=== PATIENT | male | born 1935 | race Caucasian/White ===

== ENCOUNTER 2019-11-27 19:27 | Emergency (ER) | payer MEDICARE, OTHER ==
[~2019-11-27] VITALS: Ht 177.8 cm; Wt 68.0 kg
[~2019-11-27 19:27] MED LIST: ACTOS; AMARYL4 MG PO; ASPIRIN325 PO; ASPIRIN81 M2 PO; CENTRUM SILVER1 EAC2 PO; COZAAR 50 MG TA50 M2 PO; FISH OIL300 MG PO; HYTRIN; LIPITOR 20 MG T20 M1 PO; METFORMIN; METFORMIN HCL500 MG PO; NORCO 5-325 TA1 EACH PO; PROBIOTIC1 EAC1 PO; VITAMIN D3400 UNIT PO; VITAMINC500 PO; ZOCOR
[2019-11-27 19:46] LABS: URINE BILIRUBIN NEGATIVE (Negative); URINE BLOOD NEGATIVE (Negative); URINE CLARITY CLEAR; URINE COLOR STRAW; URINE GLUCOSE-RANDOM 3+ (Negative); URINE KETONES NEGATIVE (Negative); URINE LEUKOCYTES-REFLEX NEGATIVE (Negative); URINE NITRITE-REFLEX NEGATIVE (Negative); URINE PROTEIN NEGATIVE (Negative); URINE SPECIFIC GRAVITY <= 1.005 (1.005-1.030); URINE UROBILINOGEN 0.2 E.U./dl (0.2-1.0)
[2019-11-27 21:03] LABS: ABSOLUTE BASOPHILS 0.1 thou/uL (0.0-0.2); ABSOLUTE EOSINOPHILS 0.1 thou/uL (0.0-0.7); ABSOLUTE LYMPHOCYTES 1.3 thou/uL (0.8-5.3); ABSOLUTE MONOCYTES 0.4 thou/uL (0.0-1.2); BASOPHILS 1.3 %; EOSINOPHILS 2.9 %; HEMATOCRIT 32.8 % (42.0-52.0); HEMOGLOBIN 10.6 gm/dL (14.0-18.0); LYMPHOCYTES 26.5 %; MCH 26.4 pg (26.0-34.0); MCHC 32.4 g/dL (28.0-37.0); MCV 81.6 fL (80.0-100.0); MONOCYTES 7.7 %; MPV 9.1 fl. (7.2-11.1); NUCLEATED RBCS 0 /100WBC; PLATELET COUNT* 262 thou/uL (150-400); POLYS 61.6 %; RBC 4.03 mil/uL (4.50-6.00); RDW-CV 16.2 % (10.5-14.5); WBC 4.9 thou/uL (4.0-11.0)
[2019-11-27 21:11] LABS: PROTIME 10.3 Seconds (9.20-11.50)
[2019-11-27 21:16] LABS: CALCIUM 8.1 mg/dL (8.5-10.1); CREATININE 1.1 mg/dL (0.6-1.3); POTASSIUM 3.7 mmol/L (3.5-5.1)
[2019-11-27 21:27] LABS: ALBUMIN 2.9 g/dL (3.4-5.0); TOTAL BILIRUBIN 0.3 mg/dL (<0.1-1.0); TOTAL PROTEIN 5.7 g/dL (6.4-8.2)
[2019-11-27] MEDS ORDERED: GLUCOPHAGE500 MG PO (23:07)
[2019-11-27] MEDS ORDERED: GLIMEPIRIDE4 MG PO (23:07)
[2019-11-28] VITALS: BP 109/60
--- NOTE | 2019-11-28 10:31 | EKG ---
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: : 1935 Requested By: Eve Barnett Order Number: [id number] MD: Henrique Warren Measurements Intervals [place] Rate: 54 P: 99 MI: 214 QRS: 84 QRSD: 112 T: 52 QT: 431 QTc: 409 Interpretive Statements Sinus arrhythmia Borderline prolonged MI interval Borderline intraventricular conduction delay Borderline low voltage, extremity leads Compared to ECG 04/10/2016 01:26:09 no change Electronically Signed On 11-28-2019 10:30:20 MANAGER DOCUMENT by Henrique Warren [email or web address] <ELECTRONICALLY SIGNED> By: Henrique Warren MD, [facility] 11/28/19 1030 31 31 Henrique Warren MD, [facility] /EPI
== END 2019-11-28 00:03 | disposition home or self-care (01) ==
LOC: M.ERS 19:27
PROVIDERS: Emergency Medicine
DX: E11.65 Type 2 diabetes mellitus with hyperglycemia (principal); E78.00 Pure hypercholesterolemia, unspecified; Z88.2 Allergy status to sulfonamides

== ENCOUNTER 2020-10-02 23:26 | Inpatient (IN) | payer MEDICARE, OTHER ==
[~2020-10-02] VITALS: Ht 182.9 cm; Wt 68.0 kg
[~2020-10-02 23:26] MED LIST changes: +GLIMEPIRIDE4 MG PO; +GLUCOPHAGE500 MG PO
[2020-10-02 23:33] VITALS: BP 163/81
[2020-10-02 23:59] LABS: ABSOLUTE BASOPHILS 0.1 thou/uL (0.0-0.2); ABSOLUTE EOSINOPHILS 0.1 thou/uL (0.0-0.7); ABSOLUTE LYMPHOCYTES 0.9 thou/uL (0.8-5.3); ABSOLUTE MONOCYTES 0.4 thou/uL (0.0-1.2); ABSOLUTE NEUTROPHILS 6.4 thou/uL (1.6-8.1); BASOPHILS 0.9 %; EOSINOPHILS 0.7 %; HEMATOCRIT 37.3 % (42.0-52.0); HEMOGLOBIN 11.6 gm/dL (14.0-18.0); LYMPHOCYTES 11.6 %; MCH 26.5 pg (26.0-34.0); MCV 85.5 fL (80.0-100.0); MONOCYTES 5.1 %; MPV 9.1 fl. (7.2-11.1); NUCLEATED RBCS 0 /100WBC; PLATELET COUNT* 259 thou/uL (150-400); POLYS 81.7 %; RBC 4.37 mil/uL (4.50-6.00); RDW-CV 16.7 % (10.5-14.5); WBC 7.8 thou/uL (4.0-11.0)
[2020-10-03 00:15] LABS: BE -1.6 mmol/L (-2 to +3); PO2 119.1 mmHg (75.0-100.0); pH 7.362 (7.340-7.450)
[2020-10-03 00:17] LABS: PROTIME 10.9 Seconds (9.20-11.50)
[2020-10-03 00:32] LABS: CALCIUM 8.4 mg/dL (8.5-10.1); CREATININE 1.4 mg/dL (0.6-1.3)
[2020-10-03 00:40] LABS: ALBUMIN 3.2 g/dL (3.4-5.0); MAGNESIUM 1.6 mg/dL (1.8-2.4); TOTAL BILIRUBIN 0.4 mg/dL (<0.1-1.0); TOTAL PROTEIN 6.4 g/dL (6.4-8.2)
[2020-10-03 04:21] LABS: CALCIUM 8.7 mg/dL (8.5-10.1); MAGNESIUM 2.2 mg/dL (1.8-2.4); PHOSPHORUS* 3.2 mg/dL (2.5-4.9); POTASSIUM 3.3 mmol/L (3.5-5.1)
[2020-10-03 05:19] LABS: URINE BILIRUBIN NEGATIVE (Negative); URINE BLOOD 1+ (Negative); URINE CLARITY CLEAR; URINE COLOR YELLOW; URINE GLUCOSE-RANDOM 3+ (Negative); URINE KETONES NEGATIVE (Negative); URINE LEUKOCYTES-REFLEX NEGATIVE (Negative); URINE NITRITE-REFLEX NEGATIVE (Negative); URINE PROTEIN 2+ (Negative); URINE UROBILINOGEN 0.2 E.U./dl (0.2-1.0)
[2020-10-03 05:42] LABS: BACTERIA-REFLEX 1-9 Few /HPF (None Seen); CRYSTALS None Seen /LPF (None Seen); FINE GRANULAR CASTS 0-3 Few /LPF (None Seen); HYALINE CASTS 4-10 Moderate /LPF (None Seen); MUCUS 0-3 Light strn/LPF (None Seen); SQUAMOUS 0-3 Few /LPF (0-3); URINE RBC 0-2 Rare /HPF (0-2); URINE WBC-REFLEX 0-5 Rare /HPF (0-5)
[2020-10-03 07:10] VITALS: BP 109/55
--- NOTE | 2020-10-03 07:34 | NUR ---
INSULIN DRIP PAUSED AT THIS TIME DUE TO PATIENT'S BLOOD GLUCOSE OF 140. ER PHYSICIAN MADE AWARE.
[2020-10-03 08:57] LABS: CALCIUM 8.6 mg/dL (8.5-10.1); CREATININE 0.9 mg/dL (0.6-1.3); POTASSIUM 3.7 mmol/L (3.5-5.1)
[2020-10-03 09:00] LABS: PHOSPHORUS* 3.6 mg/dL (2.5-4.9)
--- NOTE | 2020-10-03 09:21 | NUR ---
PT IS MAKING CLAIMS THAT HE SHOULD HAVE APPROXIMATELY $16,000 IN HIS POSESSION AT THIS TIME. SECURITY IS BEING CALLED TO GO THROUGH PATIENT'S BELONGINGS WITH RN AT THIS TIME.
--- NOTE | 2020-10-03 09:41 | NUR ---
PT HAS BEEN FOUND TO HAVE APPROXIMATELY $6,000 IN HIS POSSESSION. SECURITY IS AT BEDSIDE AND FILLING OUT PERSONAL BELONGINGS SHEET.
[2020-10-03 10:10] VITALS: BP 140/67
[2020-10-03 10:16] VITALS: BP 134/66
--- NOTE | 2020-10-03 12:13 | EKG ---
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: [place] : 1935 Requested By: Eve Barnett Order Number: [id number] MD: Henrique Warren Measurements Intervals [place] Rate: 87 P: 83 HI: 201 QRS: 84 QRSD: 107 T: 40 QT: 380 QTc: 457 Interpretive Statements Sinus rhythm NIC, consider biatrial enlargement Borderline right axis deviation Compared to ECG 11/27/2019 19:32:18 Sinus arrhythmia no longer present Electronically Signed On 10-03-2020 12:13:13 ADMINISTRATIVE ASSISTANT FRONT DESK by Henrique Warren [email or web address] <ELECTRONICALLY SIGNED> By: Henrique Warren MD, [facility] 10/03/20 1213 2327 2327 Henrique Warren MD, [facility] /EPI
--- NOTE | 2020-10-03 18:36 | NUR ---
PATIENT ADMITTED TO RM 204 FROM ED AT APPROX 1000. A&O X2, FORGETFUL, PLEASANT AND CONFUSED. ADMISSION ASSESSMENT AND HISTORY COMPLETED. PATIENT MED SURG STATUS. ON 2L, SATS 100%, TITRATED TO RA. CT OF THE HEAD ORDERED DUE TO FALLS AND CONFUSION. RESULTS SHOW NO ACUTE CONCERNS ONLY AGE RELATED ATROPHY. MCCABE PATENT, UP WITH ASSSIT OF ONE. SUGARS ARE STABLE WITH SLIDING SCALE INSULIN AND ORAL COVERAGE. PATIENT WITH MULTIPLE WOUNDS AND PICTURES TAKEN, WOUND CONSULT ORDER OBTAINED AND INITIATED.
[2020-10-03 20:00] VITALS: BP 144/69
[2020-10-04] VITALS: BP 128/57
--- NOTE | 2020-10-04 04:11 | NUR ---
PT ALERT ORIENTED X 2. ON BED REST. OPEN BUTTOCK WOUNDS COVERED WITH MEPLEX. MCCABE WITH CLEAR YELLOW. ON RA. DENIES PAIN.
[2020-10-04 04:41] LABS: HEMATOCRIT 33.8 % (42.0-52.0); HEMOGLOBIN 11.1 gm/dL (14.0-18.0); MCHC 32.9 g/dL (28.0-37.0); MCV 82.3 fL (80.0-100.0); MPV 8.9 fl. (7.2-11.1); RBC 4.11 mil/uL (4.50-6.00); RDW-CV 16.5 % (10.5-14.5); WBC 8.9 thou/uL (4.0-11.0)
[2020-10-04 05:05] LABS: CALCIUM 8.8 mg/dL (8.5-10.1); CREATININE 0.8 mg/dL (0.6-1.3); MAGNESIUM 1.8 mg/dL (1.8-2.4); POTASSIUM 3.9 mmol/L (3.5-5.1)
[2020-10-04 08:10] VITALS: BP 130/67
--- NOTE | 2020-10-04 11:51 | NUR ---
CM ATTEMPTED TO SPEAK TO THE PT TO COMPLETE CM ASSESSEMENT. PT ALERT TO SELF AND UNABLE TO ANSWER ASSESSMENT QUESTIONS. CM ATTEMPTED TO CONTACT PT'S SPOUSE. NO ANSWER AND PT'S SPOUSE VOICEMAIL IS FULL. CM UNABLE TO LEAVE A VOICEMAIL. CM WILL F/U WITH PT'S SPOUSE AT ANOTHER TIME TO DISCUSS CM ASSESSMENT.
[2020-10-04 12:00] VITALS: BP 124/67
--- NOTE | 2020-10-04 17:49 | NUR ---
ASSUMED CARE OF PT AT 0730. PT [id number] AND CONFUSED AT TIMES. MED SURG STATUS. ON RA SAT UPPER 90'S. PT DENIES ANY PAIN OR SHORTNESS OF BREATH. PT UP TO RECLINER FOR MEALS-TOLERATED WELL. PT NEPHEW HERE THIS AFTERNOON AND STATED HE IS PT DPOA AND WILL BRING PAPERWORK UP OR FAX PAPERWORK. PT UP WITH 1 ASSIST, WEAKNESS NOTED AND UNSTEADY AT TIMES. MCCABE TO DEPENDENT DRAINAGE. PT WORKED WITH PT, OT AND ST TODAY-TOLERATED WELL. NO NEW RECOMMENDATIONS RECEIVED FROM SPEECH THERAPY. PT AMBULATED IN HALLWAY WITH PT WITH WALKER. PT UNSETADY AND WEAK AT TIMES. BLOOD SUGARS STABLE TODAY WITH SLIDING SCALE AND ORAL COVERAGE. REFER TO RESULTS. PT CURRENTLY RESTING IN BED WITH EYES CLOSED. AM ASSESSMENT CHARTED. MEDICATIONS PER NOV. PT REPOSITIONED EVERY 2 HOURS FOR COMFORT. HOURLY ROUNDING OBSERVED. BED IN LOW POSITION. BED/CHAIR ALARM IN PLACE. FALL PRECAUTIONS IN PLACE. CALL LIGHT WITHIN REACH. WILL CONTINUE PLAN OF CARE.
[2020-10-04 20:00] VITALS: BP 130/62
[2020-10-05] VITALS: BP 128/78
[2020-10-05 04:20] LABS: ABSOLUTE BASOPHILS 0.1 thou/uL (0.0-0.2); ABSOLUTE EOSINOPHILS 0.2 thou/uL (0.0-0.7); ABSOLUTE LYMPHOCYTES 1.2 thou/uL (0.8-5.3); ABSOLUTE MONOCYTES 0.4 thou/uL (0.0-1.2); ABSOLUTE NEUTROPHILS 6.6 thou/uL (1.6-8.1); BASOPHILS 0.6 %; EOSINOPHILS 2.6 %; HEMATOCRIT 35.2 % (42.0-52.0); HEMOGLOBIN 11.5 gm/dL (14.0-18.0); MCH 27.1 pg (26.0-34.0); MCHC 32.8 g/dL (28.0-37.0); MCV 82.7 fL (80.0-100.0); MPV 8.9 fl. (7.2-11.1); NUCLEATED RBCS 0 /100WBC; PLATELET COUNT* 269 thou/uL (150-400); POLYS 77.8 %; RBC 4.25 mil/uL (4.50-6.00); RDW-CV 16.6 % (10.5-14.5); WBC 8.5 thou/uL (4.0-11.0)
[2020-10-05 04:35] LABS: ALBUMIN 2.4 g/dL (3.4-5.0); ALKALINE PHOSPHATASE 94 U/L (46-116); ANION GAP 8 mmol/L (7-16); BUN 13 mg/dL (7-18); CALCIUM 8.1 mg/dL (8.5-10.1); CHLORIDE 104 mmol/L (98-107); CO2 28 mmol/L (21-32); CREATININE 0.8 mg/dL (0.6-1.3); GLUCOSE 237 mg/dL (70-99); PHOSPHORUS* 3.1 mg/dL (2.5-4.9); POTASSIUM 3.9 mmol/L (3.5-5.1); SGOT 11 U/L (15-37); SGPT 15 U/L (30-65); SODIUM 140 mmol/L (136-145); TOTAL BILIRUBIN 0.2 mg/dL (<0.1-1.0); TOTAL PROTEIN 5.3 g/dL (6.4-8.2)
[2020-10-05 08:00] VITALS: BP 143/81
[2020-10-05 12:00] VITALS: BP 149/79
[2020-10-05 16:00] VITALS: BP 155/85
[2020-10-05 20:00] VITALS: BP 162/88
[2020-10-06 01:33] VITALS: BP 149/87
[2020-10-06 04:58] VITALS: BP 139/77
[2020-10-06 08:00] VITALS: BP 150/87
--- NOTE | 2020-10-06 09:20 | NUR ---
WOUND NURSE: PATIENT SEEN TO ADDRESS THE FOLLOWING WOUNDS: SACRUM: PRESENTS WITH STAGE 3 PRESSURE INJURY CONTAINING FULL THICKNESS TISSUE LOSS MEASURING 1.0 X 1.5 X 0.2 CM. CONTAINS RED AND YELLOW NONGRANULATING TISSUE IN THE WOUND BED. MINIMAL SEROUSANGUINOUS DRAINAGE. THERE IS PERIWOUND REDNESS AND COUPLE SMALL AREAS OF EXCORIATION. CLEANSED WITH WOUND CLEANSER AND GAUZE. APPLIED SKIN PREP TO PERIWOUND INTACT TISSUE. APPLIED AQUACEL AG TO OPEN AREAS. COVERED WITH EXUDERM UNDER TRANSPARENT DRESSING. PLAN TO CHANGE DRESSING 2X/WEEK AND PRN. LEFT HAND CONTAINED A SCAB WHEN LIFTED OFF REVEALED INTACT SKIN. THERE IS INTACT SKIN ON A SCAR ON THE LEFT DORSAL FOOT. THERE IS A RUPTURED PUSTULE IN THE ANTERIOR LOWER EXTREMITY WHICH MEASURED 0.4 X 0.3 X 0.1 CM. TIS CONTAINED SCANT PINK PURULENT DRAINAGE AND RED AND YELLOW NONGRANULATING TISSUE IN THE WOUND BED. THERE IS MINIMAL PERIWOUND REDNESS AND NO INDURATION. CLEANSED WITH WOUND CLEANSER AND GAUZE. APPLIED SKIN PREP TO PERIWOUND. APPLIED AQUACEL AG UNDER BORDERED FOAM DRESSING TO AFFECTED AREA. PATIENT IS ABLE TO REPOSITION SELF, BUT MAY REQUIRE REMINDERS TO DO SO. ALSO EXPLAINED IMPORTANCE OF FREQUENT REPOSITIONING OFF SACRUM AND HE STATED HE UNDERSTOOD. PATIENT IS IN CONTACT ISOLATION. PATIENT HAS MACULAR RED RASH IN PERINEAL AREA. CURRENTLY MOISTURE BARRIER IS BEING USED, HOWEVER, PLAN TO DISCUSS WITH POSSIBLE USE OF NYSTATIN POWDER INSTEAD.
--- NOTE | 2020-10-06 11:47 | NUR ---
Pt is A&O. Resides at home with his . Pt uses a cane or walker for mobility. No hx of HH or SNF. ARU consult placed, Pt states that he would prefer to return home since his is home alone. Therapies to see. Await ARU decision. Plan home with HH vs ARU. Per , anticipate dc tomorrow.
[2020-10-06 16:31] VITALS: BP 129/72
--- NOTE | 2020-10-06 18:45 | NUR ---
RECEIVED REPORT. ASSUMED CARE OF PT AROUND 0730. AM ASSESSMENT AND VITALS COMPLETED CHARTED. MEDS PER EMAR. APPETITE FAIR. PT ABLE TO WORK WITH THERAPIES THIS SHIFT. MCCABE IN PLACE TO DD. WOUND CARE COMPLETED BY WOUND RN. PLAN IS FOR PT TO DC TO REHAB POTENTIALLY TOMORROW. PT CURRENTLY RESTING IN BED. CALL LIGHT IS WITHIN REACH. FALL PRECAUTIONS IN PLACE. HOURLY ROUNDING PERFORMED.
[2020-10-06 21:15] VITALS: BP 134/70
[2020-10-07] VITALS (7 sets, daily range): BP systolic 134–148; BP diastolic 70–86
--- NOTE | 2020-10-07 04:23 | NUR ---
PATIENT ARRIVED TO UNIT IN TRANSFER BY BED FROM ROOM 204 AT 2115 IN STABLE CONDITION. REPORT WAS RECEIVED PRIOR TO TRANSFER FROM 2W JENNIFER DESOUZA. PATIENT ORIENTED TO ROOM AND ROUTINES. SHIFT ASSESSMENT COMPLETED. SEE PCI. VITAL SIGNS STABLE. NOTED MCCABE CATHETER PRESENT AND BRIEF ON WITH URINE IN BRIEF. IT APPEARS TUBING KINKED AND MAY HAVE BEEN LEAKING AROUND TUBING. PAER-CARE PROVIDED. YEASTY TYPE RASH PRESENT OF GROIN AND INNER THIGHS ESPECIALLY LEFT SIDE. DRESSINGS TO SACRUM AND LLE PRESENT, DRY AND INTACT. VITAL SIGNS STABLE. FALL PRECAUTIONS IN PLACE. CLARIFIED ORAL ANTIBIOTIC ORDER IN THE NIGHT R/T SULFA ALLERGY. CONTINUE TO MONITOR.
[2020-10-07] MEDS ORDERED: GLUCOPHAGE850 MG PO (08:38)
[2020-10-07] MEDS ORDERED: MINOCYCLINE HC100 M2 PO (08:38)
--- NOTE | 2020-10-07 15:00 | NUR ---
PT.TO DISCHARGE HOME TODAY WITH HOME HEALTH. TOO HIGH LEVEL FOR ARU. PT.HAPPY HE GOT TO GO HOME. HE SAID 'I HAVEN'T SEEN MY IN 3 WEEKS'. PT.AGREEABLE TO USING [facility] FOR HOME HEALTH. HE SAID HE THOUGHT HE HAD THEM BEFORE. HE SAID HIS NEPHEW COULD PICK HIM UP. HE COULD NOT REMEMBER THE NAME OF HIS NEPHEW. NEPHEW LISTED KESHA Mccormick IN CHART WITH PHONE NUMBER. HE SAID YES THATS HIM. CALLED KESHA. HE SAID HE WAS WORKING BUT HE WOULD ARRANGE FOR ONE OF PTS NIECES TO PICK HIM UP. HE DID NOT KNOW WHAT TIME IT WOULD BE. FAXED [facility] HH ORDERS AND MEDS,ALONG WITH H&P. ZEINA CALLED BACK ASKING FOR PTS PCP NAME. PT COULD NOT REMEMBER. NIECE HERE AND SAID IT WAS CECILLE RM-Jenniffer AT [facility]-[phone]. WILL CALL RONY WITH NAME.
--- NOTE | 2020-10-07 17:40 | NUR ---
FAMILY AND PATIENT VERBALIZED UNDERSTANDING OF DISCHARGE INSRUCTIONS. PATIENT VOIDED WITHOUT DIFFICULTY. IV D/C WITHOUT DIFFICULTY. DRESSINGS DRY AND INTACT AT DISCHARGE. PATIENT REFUSED PICTURES TO BE TAKEN. LEFT VIA W/C WITH FAMILY AND STAFF.
== END 2020-10-07 17:45 | disposition home health service (06) | DRG 602 ==
LOC: M.ERS 23:26 → M.TBA-ER 10-03 02:18 → M.2W 10-03 11:52 → M.3W 10-06 21:15
PROVIDERS: Emergency Medicine; Internal Medicine; ADMIT Internal Medicine; ATTEND Internal Medicine
DX: L03.317 Cellulitis of buttock (principal); E11.00 Type 2 diabetes mellitus with hyperosmolarity without nonketotic hyperglycemic-hyperosmolar coma (NKHHC); G92 Toxic encephalopathy; N17.0 Acute kidney failure with tubular necrosis; E44.1 Mild protein-calorie malnutrition; E11.65 Type 2 diabetes mellitus with hyperglycemia; E78.00 Pure hypercholesterolemia, unspecified; I10 Essential (primary) hypertension; E86.9 Volume depletion, unspecified; L89.309 Pressure ulcer of unspecified buttock, unspecified stage; Z20.828 Contact with and (suspected) exposure to other viral communicable diseases; F03.90 Unspecified dementia, unspecified severity, without behavioral disturbance, psychotic disturbance, mood disturbance, and anxiety; E78.5 Hyperlipidemia, unspecified; Z68.20 Body mass index [BMI] 20.0-20.9, adult; Z79.84 Long term (current) use of oral hypoglycemic drugs; Z79.899 Other long term (current) drug therapy; Z88.2 Allergy status to sulfonamides

== ENCOUNTER → 2020-10-22 | Outpatient (CLI) | payer MEDICARE, OTHER ==
[~2020-10-22] MED LIST changes: +GLUCOPHAGE850 MG PO; +MINOCYCLINE HC100 M2 PO; +SIMVASTATIN80 MG PO
== END ==
LOC: M.WC 08:19
PROVIDERS: ATTEND Surgery
DX: E11.622 Type 2 diabetes mellitus with other skin ulcer (principal); L89.322 Pressure ulcer of left buttock, stage 2; L89.312 Pressure ulcer of right buttock, stage 2; L98.412 Non-pressure chronic ulcer of buttock with fat layer exposed; I87.312 Chronic venous hypertension (idiopathic) with ulcer of left lower extremity; L97.822 Non-pressure chronic ulcer of other part of left lower leg with fat layer exposed; F03.90 Unspecified dementia, unspecified severity, without behavioral disturbance, psychotic disturbance, mood disturbance, and anxiety; Z79.84 Long term (current) use of oral hypoglycemic drugs

== ENCOUNTER 2020-10-23 22:52 | Inpatient (IN) | payer MEDICARE, OTHER ==
[~2020-10-23] VITALS: Ht 177.8 cm; Wt 70.8 kg
[~2020-10-23 22:52] MED LIST changes: -SIMVASTATIN80 MG PO
[2020-10-23 22:55] VITALS: BP 146/71
[2020-10-23 23:11] LABS: BE -2.1 mmol/L (-2 to +3); PCO2 VENOUS 48.1 mmHg (41.0-51.0); PO2 VENOUS 37.2 mmHg (35.0-45.0)
[2020-10-23 23:15] LABS: ABSOLUTE EOSINOPHILS 0.1 thou/uL (0.0-0.7); ABSOLUTE LYMPHOCYTES 1.1 thou/uL (0.8-5.3); ABSOLUTE MONOCYTES 0.4 thou/uL (0.0-1.2); ABSOLUTE NEUTROPHILS 5.9 thou/uL (1.6-8.1); BASOPHILS 0.5 %; EOSINOPHILS 1.6 %; HEMATOCRIT 36.8 % (42.0-52.0); HEMOGLOBIN 11.7 gm/dL (14.0-18.0); LYMPHOCYTES 15.1 %; MCH 27.4 pg (26.0-34.0); MCHC 31.8 g/dL (28.0-37.0); MCV 86.3 fL (80.0-100.0); NUCLEATED RBCS 0 /100WBC; PLATELET COUNT* 313 thou/uL (150-400); POLYS 77.8 %; RBC 4.27 mil/uL (4.50-6.00); RDW-CV 16.5 % (10.5-14.5); WBC 7.6 thou/uL (4.0-11.0)
[2020-10-23] MEDS ORDERED: SIMVASTATIN80 MG PO (23:22)
[2020-10-23 23:27] LABS: ANION GAP 7 mmol/L (7-16); BUN 12 mg/dL (7-18); CALCIUM 8.8 mg/dL (8.5-10.1); CHLORIDE 94 mmol/L (98-107); CO2 29 mmol/L (21-32); CREATININE 1.4 mg/dL (0.6-1.3); POTASSIUM 3.9 mmol/L (3.5-5.1); SODIUM 130 mmol/L (136-145)
[2020-10-23 23:28] LABS: GLUCOSE 715 mg/dL (70-99)
[2020-10-23 23:35] LABS: ALKALINE PHOSPHATASE 203 U/L (46-116); DIRECT BILIRUBIN 0.1 mg/dL (<0.1-0.3); LIPASE 280 U/L (73-393); MAGNESIUM 1.7 mg/dL (1.8-2.4); NT-PRO BRAIN NAT PEPTIDE 266 pg/mL (<300); PHOSPHORUS* 3.7 mg/dL (2.5-4.9); SGOT 13 U/L (15-37); SGPT 16 U/L (30-65); TOTAL BILIRUBIN 0.5 mg/dL (<0.1-1.0); TOTAL PROTEIN 6.3 g/dL (6.4-8.2)
[2020-10-24] VITALS (7 sets, daily range): BP systolic 91–134; BP diastolic 49–73
[2020-10-24 00:32] LABS: URINE BILIRUBIN NEGATIVE (Negative); URINE BLOOD 2+ (Negative); URINE COLOR STRAW; URINE GLUCOSE-RANDOM 3+ (Negative); URINE KETONES NEGATIVE (Negative); URINE LEUKOCYTES 1+ (Negative); URINE NITRITE NEGATIVE (Negative); URINE PROTEIN 2+ (Negative); URINE SPECIFIC GRAVITY 1.015 (1.005-1.030); URINE UROBILINOGEN 0.2 E.U./dl (0.2-1.0)
[2020-10-24 00:33] LABS: BACTERIA >30 Many /HPF (None Seen); CASTS None Seen /LPF (None Seen); CRYSTALS None Seen /LPF (None Seen); MUCUS 4-6 Moderate strn/LPF (None Seen); SQUAMOUS 0-3 Few /LPF (0-3); URINE CLARITY SL HAZY; URINE WBC >25 Many /HPF (0-5); WBC CLUMPS Moderate (None Seen)
[2020-10-24 11:21] LABS: ALBUMIN 2.5 g/dL (3.4-5.0); CALCIUM 8.2 mg/dL (8.5-10.1); CREATININE 0.9 mg/dL (0.6-1.3); POTASSIUM 3.4 mmol/L (3.5-5.1); TOTAL BILIRUBIN 0.3 mg/dL (<0.1-1.0); TOTAL PROTEIN 5.3 g/dL (6.4-8.2)
--- NOTE | 2020-10-24 12:01 | 2DMMODE ---
[place] [address] 2 D/M-MODE ECHOCARDIOGRAM Name: ETIENNE GAN JR Room: [place] [address] ADM IN [facility]#: [id number] Admission: 10/23/20 Attend Phys: Kathrine Manley MD Discharge: Date of : 37 Date of Service: 10/24/20 1200 Report #: [id number] THIS REPORT FOR: cc: CECILLE KOENIG NP, KATHERINE J. NP Holkins, John M. MD [facility] ~ APPROVED REPORT Study performed: 10/24/2020 09:55:43 EXAM: Comprehensive 2D, Doppler, and color-flow Echocardiogram Patient Location: In-Patient Room #: er Status: routine BSA: 1.88 HR: 78 bpm BP: 103/48 mmHg Rhythm: NSR Other Information Study Quality: Good Indications CVA/TIA Echo Enhancing Agent Indication: Rule out Shunt Agent(s) / Amount(s) Used: Agitated Saline 10 cc 2D Dimensions IVSd: 10.01 (7-11mm) LVOT Diam: 19.95 (18-24mm) LVDd: 46.42 mm PWd: 10.01 (7-11mm) Ascending Ao: 30.90 (22-36mm) LVDs: 25.89 (25-40mm) Aortic Root: 33.90 mm Volumes Left Atrial Volume (Systole) LA ESV Index: 23.80 mL/m2 Aortic Valve AoV Peak Jim.: 1.16 m/s AO Peak Gr.: 5.39 mmHg LVOT Max P.41 mmHg AO Mean Gr.: 2.43 mmHg LVOT Mean P.43 [place] [address] 2 D/M-MODE ECHOCARDIOGRAM Name: ETIENNE GAN JR Room: [address] IN [facility]#: [id number] Admission: 10/23/20 Attend Phys: Kathrine Manley MD Discharge: Date of : 37 Date of Service: 10/24/20 1200 Report #: [id number] LVOT Max V: 0.92 m/s AO V2 VTI: 19.43 cm LVOT Mean V: 0.53 m/s RODDY (VTI): 2.80 cm2 LVOT V1 VTI: 17.43 cm Mitral Valve E/A Ratio: 0.92 MV Decel. Time: 290.07 ms MV E Max Jim.: 0.55 m/s MV PHT: 84.12 ms MVA (PHT): 2.62 cm2 TDI E/Lateral E': 5.00 E/Medial E': 5.00 Medial E' Jim.: 0.11 m/s Lateral E' Jim.: 0.11 m/s Pulmonary Valve PV Peak Jim.: 0.80 m/s PV Peak Gr.: 2.55 mmHg Tricuspid Valve RAP Estimate: 5.00 mmHg TR Peak Gr.: 52.43 mmHg RVSP: 57.00 mmHg PA Pressure: 57.00 mmHg Left Ventricle The left ventricle is normal size. There is normal LV segmental wall motion. There is normal left ventricular wall thickness. Left ventricular systolic function is normal. The left ventricular ejection fraction is within the normal range. LVEF is 60%. This study is not technically sufficient to allow evaluation of the LV diastolic function. Right Ventricle Right ventricle is moderately dilated. The right ventricular systolic function is normal. Atria The left atrium size is normal. Injection of bubbles documented no interatrial shunt. Right atrium is moderately dilated. Aortic Valve Mild aortic valve sclerosis. Trace aortic regurgitation. There is no aortic valvular stenosis. Mitral Valve There is mitral annular calcification. There [place] [address] 2 D/M-MODE ECHOCARDIOGRAM Name: ETIENNE GAN JR Room: [address] IN [facility]#: [id number] Admission: 10/23/20 Attend Phys: Kathrine Manley MD Discharge: Date of : 37 Date of Service: 10/24/20 1200 Report #: [id number] regurgitation noted. No evidence of mitral valve stenosis. Tricuspid Valve The tricuspid valve is normal in structure. Mild tricuspid regurgitation. Moderate pulmonary hypertension. Pulmonic Valve The pulmonary valve is normal in structure. There is no pulmonic valvular regurgitation. Great Vessels The aortic root is normal in size. IVC is normal in size and collapses >50% with inspiration. Pericardium There is no pericardial effusion. <Conclusion> The left ventricle is normal size. There is normal left ventricular wall thickness. Left ventricular systolic function is normal. The left ventricular ejection fraction is within the normal range. LVEF is 60%. Right ventricle is moderately dilated. The right ventricular systolic function is normal. The left atrium size is normal. Right atrium is moderately dilated. Mild aortic valve sclerosis. Trace aortic regurgitation. There is no aortic valvular stenosis. There is mitral annular calcification. There is no mitral valve regurgitation noted. The tricuspid valve is normal in structure. Mild tricuspid regurgitation. Moderate pulmonary hypertension. IVC is normal in size and collapses >50% with inspiration. There is no pericardial effusion. There is normal LV segmental wall motion. Injection of bubbles documented no interatrial shunt. <ELECTRONICALLY SIGNED> By: Bebeto Joe MD, FACC 10/24/20 1200 1200 99 Bebeto Joe MD, FACC /INF
--- NOTE | 2020-10-24 13:00 | EKG ---
[place] [address] ELECTROCARDIOGRAM REPORT Name: ETIENNE GAN JR Room: [place] [address] ADM IN .R.#: [id number] Admission: 10/23/20 Attend Phys: Kathrine Manley MD Discharge: Date of : 37 Date of Service: 10/23/202 Report #: [id number] THIS REPORT FOR: //name// [facility] ED Test Date: 2020-10-23 Test Time: 23:02:49 Pat Name: ETIENNE GAN Department: Room: [facility] Gender: M Greenhouse Assistant: : 1935 Requested By: Tom Whaley Order Number: [id number] MD: Bebeto Joe Measurements Intervals [place] Rate: 63 P: 87 [place]: 195 QRS: 91 QRSD: 110 T: 65 QT: 430 QTc: 441 Interpretive Statements Sinus rhythm Multiform ventricular premature complexes Right axis deviation Consider left ventricular hypertrophy Compared to ECG 10/02/2020 23:27:21 Ventricular premature complex(es) now present Electronically Signed On 10-24-2020 13:00:43 DRY TALC RACKER by Bebeto Joe [email or web address] <ELECTRONICALLY SIGNED> By: Bebeto Joe MD, FACC 10/24/201299 01 01 Bebeto Joe MD, FAC /EPI
[2020-10-25 02:08] LABS: GLYCOHEMOGLOBIN (HGB A1C) 15.3 % (4.8-5.6)
[2020-10-25 04:02] VITALS: BP 90/51
[2020-10-25 04:32] LABS: ABSOLUTE BASOPHILS 0.1 thou/uL (0.0-0.2); ABSOLUTE EOSINOPHILS 0.2 thou/uL (0.0-0.7); ABSOLUTE LYMPHOCYTES 1.7 thou/uL (0.8-5.3); ABSOLUTE MONOCYTES 0.6 thou/uL (0.0-1.2); EOSINOPHILS 1.4 %; HEMATOCRIT 37.8 % (42.0-52.0); HEMOGLOBIN 11.9 gm/dL (14.0-18.0); LYMPHOCYTES 12.4 %; MCH 26.5 pg (26.0-34.0); MCHC 31.6 g/dL (28.0-37.0); MCV 83.9 fL (80.0-100.0); MONOCYTES 4.6 %; MPV 9.1 fl. (7.2-11.1); NUCLEATED RBCS 0 /100WBC; PLATELET COUNT* 332 thou/uL (150-400); POLYS 80.6 %; RBC 4.51 mil/uL (4.50-6.00); RDW-CV 16.3 % (10.5-14.5); WBC 13.7 thou/uL (4.0-11.0)
[2020-10-25 05:10] LABS: CREATININE 0.9 mg/dL (0.6-1.3); POTASSIUM 3.6 mmol/L (3.5-5.1)
[2020-10-25 05:24] LABS: CHOLESTEROL 155 mg/dL (<200); HDL CHOLESTEROL 50 mg/dL (>40); LDL CHOLESTEROL 90 mg/dL (<100); TC:HDL 3.1 Ratio (Not establshd); TRIGLYCERIDE 75 mg/dL (<150); VLDL 15 mg/dL (<40)
[2020-10-25 05:33] LABS: SERUM ASSESSMENT Clear
[2020-10-25 08:00] VITALS: BP 157/70
[2020-10-25 11:30] VITALS: BP 142/72
[2020-10-25 16:00] VITALS: BP 134/67
[2020-10-25 20:00] VITALS: BP 145/77
[2020-10-26 01:06] VITALS: BP 131/72
[2020-10-26 03:52] LABS: ABSOLUTE BASOPHILS 0.1 thou/uL (0.0-0.2); ABSOLUTE EOSINOPHILS 0.3 thou/uL (0.0-0.7); ABSOLUTE LYMPHOCYTES 1.1 thou/uL (0.8-5.3); ABSOLUTE MONOCYTES 0.5 thou/uL (0.0-1.2); ABSOLUTE NEUTROPHILS 6.1 thou/uL (1.6-8.1); BASOPHILS 1.3 %; EOSINOPHILS 3.5 %; HEMATOCRIT 36.7 % (42.0-52.0); HEMOGLOBIN 11.8 gm/dL (14.0-18.0); MCH 26.8 pg (26.0-34.0); MCHC 32.2 g/dL (28.0-37.0); MCV 83.1 fL (80.0-100.0); MPV 8.8 fl. (7.2-11.1); NUCLEATED RBCS 0 /100WBC; PLATELET COUNT* 273 thou/uL (150-400); POLYS 75.2 %; RBC 4.42 mil/uL (4.50-6.00); RDW-CV 16.3 % (10.5-14.5); WBC 8.2 thou/uL (4.0-11.0)
[2020-10-26 03:56] LABS: CALCIUM 8.1 mg/dL (8.5-10.1); CREATININE 0.9 mg/dL (0.6-1.3); POTASSIUM 3.7 mmol/L (3.5-5.1)
[2020-10-26 04:32] VITALS: BP 142/79
[2020-10-26 08:00] VITALS: BP 133/75
[2020-10-26 13:04] VITALS: BP 146/87
[2020-10-26 16:30] VITALS: BP 157/86
[2020-10-26 20:00] VITALS: BP 139/80
[2020-10-27] VITALS: BP 136/81
[2020-10-27 04:00] VITALS: BP 135/75
[2020-10-27 08:00] VITALS: BP 144/81
[2020-10-27] MEDS ORDERED: GLUCOTROL5 MG PO (09:37)
[2020-10-27] MEDS ORDERED: GLUCOPHAGE500 MG PO (09:37)
[2020-10-27 12:00] VITALS: BP 143/75
== END 2020-10-27 16:20 | DRG 637 ==
LOC: M.ERS 22:52 → M.TBA-ER 23:59 → M.2W 10-24 17:15
PROVIDERS: Emergency Medicine; Internal Medicine; ADMIT Family Medicine; ATTEND Family Medicine
DX: E11.00 Type 2 diabetes mellitus with hyperosmolarity without nonketotic hyperglycemic-hyperosmolar coma (NKHHC) (principal); G93.41 Metabolic encephalopathy; N17.9 Acute kidney failure, unspecified; E87.1 Hypo-osmolality and hyponatremia; N39.0 Urinary tract infection, site not specified; Z20.822 Contact with and (suspected) exposure to COVID-19; E78.00 Pure hypercholesterolemia, unspecified; E86.0 Dehydration; F03.90 Unspecified dementia, unspecified severity, without behavioral disturbance, psychotic disturbance, mood disturbance, and anxiety; Z88.2 Allergy status to sulfonamides; Z79.899 Other long term (current) drug therapy

== ENCOUNTER → 2020-11-05 | Outpatient (CLI) | payer MEDICARE, OTHER ==
[~2020-11-05] MED LIST changes: +GLUCOTROL5 MG PO; +SIMVASTATIN80 MG PO
== END ==
LOC: M.WC 10:30
PROVIDERS: ATTEND Surgery
DX: E11.622 Type 2 diabetes mellitus with other skin ulcer (principal); I87.312 Chronic venous hypertension (idiopathic) with ulcer of left lower extremity; L97.822 Non-pressure chronic ulcer of other part of left lower leg with fat layer exposed; L89.322 Pressure ulcer of left buttock, stage 2; L89.312 Pressure ulcer of right buttock, stage 2; L98.412 Non-pressure chronic ulcer of buttock with fat layer exposed; R60.9 Edema, unspecified; F03.90 Unspecified dementia, unspecified severity, without behavioral disturbance, psychotic disturbance, mood disturbance, and anxiety; Z79.84 Long term (current) use of oral hypoglycemic drugs

== ENCOUNTER 2020-12-22 21:15 | Inpatient (IN) | payer MEDICARE, OTHER ==
[~2020-12-22] VITALS: Ht 172.7 cm; Wt 73.9 kg
[2020-12-22 21:18] VITALS: BP 141/79
[2020-12-22] MEDS ORDERED: HUMALOG100 UNIT/1 SUBQ (21:24)
[2020-12-22] MEDS ORDERED: LANTUS SUBQ (21:24)
[2020-12-22] MEDS ORDERED: ALPRAZOLAM 0.0.25 M1 PO (21:25)
[2020-12-22 22:02] LABS: URINE BILIRUBIN NEGATIVE (Negative); URINE BLOOD 1+ (Negative); URINE CLARITY CLEAR; URINE COLOR YELLOW; URINE GLUCOSE-RANDOM 3+ (Negative); URINE KETONES NEGATIVE (Negative); URINE LEUKOCYTES-REFLEX NEGATIVE (Negative); URINE NITRITE-REFLEX NEGATIVE (Negative); URINE PROTEIN 2+ (Negative); URINE SPECIFIC GRAVITY 1.025 (1.005-1.030); URINE UROBILINOGEN 0.2 E.U./dl (0.2-1.0)
[2020-12-22 22:31] LABS: HYALINE CASTS 0-3 Few /LPF (None Seen); SQUAMOUS 0-3 Few /LPF (0-3); URINE RBC 0-2 Rare /HPF (0-2); URINE WBC-REFLEX 0-5 Rare /HPF (0-5)
[2020-12-22 22:32] LABS: ABSOLUTE BASOPHILS 0.1 thou/uL (0.0-0.2); ABSOLUTE EOSINOPHILS 0.1 thou/uL (0.0-0.7); ABSOLUTE LYMPHOCYTES 0.8 thou/uL (0.8-5.3); ABSOLUTE MONOCYTES 0.6 thou/uL (0.0-1.2); BASOPHILS 0.8 %; EOSINOPHILS 1.4 %; HEMATOCRIT 29.6 % (42.0-52.0); HEMOGLOBIN 9.4 gm/dL (14.0-18.0); LYMPHOCYTES 7.7 %; MCH 26.4 pg (26.0-34.0); MCHC 31.8 g/dL (28.0-37.0); MCV 83.1 fL (80.0-100.0); MONOCYTES 5.3 %; MPV 8.3 fl. (7.2-11.1); NUCLEATED RBCS 0 /100WBC; PLATELET COUNT* 329 thou/uL (150-400); POLYS 84.8 %; RBC 3.56 mil/uL (4.50-6.00); RDW-CV 14.7 % (10.5-14.5); WBC 10.6 thou/uL (4.0-11.0)
[2020-12-22 22:32] LABS: BACTERIA-REFLEX None Seen /HPF (None Seen); CRYSTALS None Seen /LPF (None Seen); MUCUS None Seen strn/LPF (None Seen)
[2020-12-22 22:34] LABS: PCO2 39.5 mmHg (35.0-45.0); PO2 101.8 mmHg (75.0-100.0); pH 7.381 (7.340-7.450)
[2020-12-22 22:38] LABS: CALCIUM 8.5 mg/dL (8.5-10.1); CREATININE 0.9 mg/dL (0.6-1.3); POTASSIUM 4.4 mmol/L (3.5-5.1); PROTIME 11.1 Seconds (9.20-11.50)
[2020-12-22 22:51] LABS: ALBUMIN 2.8 g/dL (3.4-5.0); MAGNESIUM 1.6 mg/dL (1.8-2.4); TOTAL BILIRUBIN 0.3 mg/dL (<0.1-1.0); TOTAL PROTEIN 6.1 g/dL (6.4-8.2)
[2020-12-23 00:45] VITALS: BP 121/84
[2020-12-23 01:04] VITALS: BP 133/78
[2020-12-23 05:14] VITALS: BP 108/63
[2020-12-23 07:58] LABS: CALCIUM 7.9 mg/dL (8.5-10.1); CREATININE 0.8 mg/dL (0.6-1.3); MAGNESIUM 1.7 mg/dL (1.8-2.4)
--- NOTE | 2020-12-23 11:46 | EKG ---
[place] [address] ELECTROCARDIOGRAM REPORT Name: ETIENNE GAN JR Room: [address] ADM IN M.R.#: [id number] Admission: 12/22/20 Attend Phys: Kathrine Manley MD Discharge: Date of : 37 Date of Service: 12/22/202122 Report #: [id number] THIS REPORT FOR: //name// [facility] ED Test Date: 2020-12-22 Test Time: 21:23:26 Pat Name: ETIENNE GAN Department: Room: [facility] Gender: M An/Sqq 89(V)15 Sonar System Journeyman: FELI : 1935 Requested By: Palmira Sanders Order Number: [id number] MD: Jacques Garcia Measurements Intervals [place] Rate: 101 P: 75 MA: 207 QRS: 74 QRSD: 94 T: 33 QT: 363 QTc: 471 Interpretive Statements Sinus tachycardia with first-degree AV block Compared to ECG 10/23/2020 23:02:49 Sinus rhythm no longer present Ventricular premature complex(es) no longer present Right-axis deviation no longer present Electronically Signed On 12-23-2020 11:46:44 CDT by Jacques Garcia [email or web address] <ELECTRONICALLY SIGNED> By: Jacques Garcia MD, FACC 12/23/20 1146 22 22 Jacques Garcia MD, FAC /EPI
[2020-12-23 12:00] VITALS: BP 137/65
[2020-12-23 16:05] VITALS: BP 144/76
[2020-12-23 19:35] VITALS: BP 128/74
[2020-12-24 00:07] VITALS: BP 118/64
[2020-12-24 04:20] LABS: HEMATOCRIT 28.5 % (42.0-52.0); HEMOGLOBIN 9.1 gm/dL (14.0-18.0); MCH 26.4 pg (26.0-34.0); MCHC 31.9 g/dL (28.0-37.0); MCV 82.9 fL (80.0-100.0); MPV 8.9 fl. (7.2-11.1); RBC 3.44 mil/uL (4.50-6.00); RDW-CV 14.3 % (10.5-14.5); WBC 6.6 thou/uL (4.0-11.0)
[2020-12-24 04:44] LABS: CALCIUM 8.9 mg/dL (8.5-10.1); CREATININE 0.9 mg/dL (0.6-1.3)
[2020-12-24 09:17] VITALS: BP 145/48
[2020-12-24 15:43] VITALS: BP 119/67
[2020-12-24 19:35] VITALS: BP 153/78
[2020-12-25 04:29] LABS: CALCIUM 8.5 mg/dL (8.5-10.1); CREATININE 0.8 mg/dL (0.6-1.3); MAGNESIUM 1.9 mg/dL (1.8-2.4); POTASSIUM 3.7 mmol/L (3.5-5.1)
[2020-12-25 13:30] VITALS: BP 124/76
[2020-12-25 16:00] VITALS: BP 122/75
[2020-12-25 19:45] VITALS: BP 127/69
[2020-12-26] MEDS ORDERED: SLOW FE142 MG PO (07:30)
[2020-12-26] MEDS ORDERED: ALPRAZOLAM 0.0.25 M1 PO (07:30)
[2020-12-26] MEDS ORDERED: RISPERDAL 1 MG T1 MG PO (07:30)
[2020-12-26] MEDS ORDERED: CIPROFLOXIN HC2.5 M1 OPHTHALMIC (07:48)
[2020-12-26 08:00] VITALS: BP 136/73
== END 2020-12-26 16:00 | DRG 637 ==
LOC: M.ERS 21:15 → M.2W 23:48 → M.TBA-ER 23:48 → M.2W 12-23 00:28 → M.ORTHSURG 12-25 16:35
PROVIDERS: Internal Medicine; Personal Emergency Response Attendant; ADMIT Family Medicine; ATTEND Family Medicine
DX: E11.65 Type 2 diabetes mellitus with hyperglycemia (principal); E11.00 Type 2 diabetes mellitus with hyperosmolarity without nonketotic hyperglycemic-hyperosmolar coma (NKHHC); G92 Toxic encephalopathy; E44.0 Moderate protein-calorie malnutrition; E87.0 Hyperosmolality and hypernatremia; F03.91 Unspecified dementia, unspecified severity, with behavioral disturbance; E78.00 Pure hypercholesterolemia, unspecified; E78.5 Hyperlipidemia, unspecified; Z66 Do not resuscitate; D50.9 Iron deficiency anemia, unspecified; Z88.2 Allergy status to sulfonamides; Z87.891 Personal history of nicotine dependence; Z20.822 Contact with and (suspected) exposure to COVID-19; Z79.899 Other long term (current) drug therapy; Z68.24 Body mass index [BMI] 24.0-24.9, adult

== ENCOUNTER 2021-09-29 16:30 | Inpatient (IN) | payer MEDICARE, OTHER ==
[~2021-09-29] VITALS: Ht 177.8 cm; Wt 70.3 kg
[~2021-09-29 16:30] MED LIST changes: +ALPRAZOLAM 0.0.25 M1 PO; +CIPROFLOXIN HC2.5 M1 OPHTHALMIC; +HUMALOG100 UNIT/1 SUBQ; +LANTUS SUBQ; +RISPERDAL 1 MG T1 MG PO; +SLOW FE142 MG PO
[2021-09-29 16:33] VITALS: BP 124/82
[2021-09-29 17:27] LABS: BE 3.3 mmol/L (-2 to +3); PO2 94.9 mmHg (75.0-100.0); pH 7.379 (7.340-7.450)
[2021-09-29 17:46] LABS: ABSOLUTE BASOPHILS 0.1 thou/uL (0.0-0.2); ABSOLUTE EOSINOPHILS 0.3 thou/uL (0.0-0.7); ABSOLUTE MONOCYTES 0.5 thou/uL (0.0-1.2); ABSOLUTE NEUTROPHILS 9.2 thou/uL (1.6-8.1); EOSINOPHILS 2.9 %; HEMATOCRIT 38.1 % (42.0-52.0); HEMOGLOBIN 12.4 gm/dL (14.0-18.0); LYMPHOCYTES 8.7 %; MCH 27.8 pg (26.0-34.0); MCHC 32.7 g/dL (28.0-37.0); MCV 85.1 fL (80.0-100.0); MONOCYTES 4.3 %; NUCLEATED RBCS 0 /100WBC; PLATELET COUNT* 351 thou/uL (150-400); POLYS 83.1 %; RBC 4.47 mil/uL (4.50-6.00); RDW-CV 14.8 % (10.5-14.5)
[2021-09-29 17:54] LABS: CALCIUM 9.2 mg/dL (8.5-10.1); CREATININE 1.3 mg/dL (0.6-1.3); POTASSIUM 5.2 mmol/L (3.5-5.1)
[2021-09-29 18:05] LABS: ALBUMIN 2.7 g/dL (3.4-5.0); TOTAL BILIRUBIN 0.4 mg/dL (<0.1-1.0); TOTAL PROTEIN 7.3 g/dL (6.4-8.2)
[2021-09-29 18:06] LABS: INFLUENZA A ANTIGEN Negative (Negative); INFLUENZA B ANTIGEN Negative (Negative)
[2021-09-29 21:00] VITALS: BP 119/55
[2021-09-30] VITALS (8 sets, daily range): BP systolic 101–126; BP diastolic 52–64
[2021-09-30 08:31] LABS: CALCIUM 8.1 mg/dL (8.5-10.1); CREATININE 1.2 mg/dL (0.6-1.3); POTASSIUM 5.6 mmol/L (3.5-5.1)
[2021-09-30 08:37] LABS: HEMATOCRIT 33.6 % (42.0-52.0); HEMOGLOBIN 10.8 gm/dL (14.0-18.0); MCH 27.7 pg (26.0-34.0); MCV 86.7 fL (80.0-100.0); MPV 8.4 fl. (7.2-11.1); RBC 3.88 mil/uL (4.50-6.00); RDW-CV 14.9 % (10.5-14.5); WBC 8.3 thou/uL (4.0-11.0)
[2021-09-30 09:38] LABS: BE -5.2 mmol/L (-2 to +3); PCO2 45.7 mmHg (35.0-45.0); PO2 68.5 mmHg (75.0-100.0)
[2021-09-30 09:43] LABS: pH 7.288 (7.340-7.450)
--- NOTE | 2021-09-30 10:33 | NUR ---
PT INCONT. OF URINE THIS AM. PT CLEANED UP AND NEW LINEN PUT ON BED.
--- NOTE | 2021-09-30 11:02 | EKG ---
[place] [address] ELECTROCARDIOGRAM REPORT Name: ETIENNE GAN JR Room: [place] [address] [address] [facility]#: [id number] Admission: 09/29/21 Attend Phys: Estephania Chiu, Discharge: Date of : 37 Date of Service: 09/29/211731 Report #: [id number] THIS REPORT FOR: //name// [facility] ED Test Date: 2021-09-29 Test Time: 17:32:42 Pat Name: ETIENNE GAN Department: Room: [facility] Gender: M Cargoman: NINA : 1935 Requested By: Joy Chatman Order Number: [id number] MD: Henrique Warren Measurements Intervals [place] Rate: 98 P: 63 FL: 210 QRS: 78 QRSD: 90 T: 61 QT: 345 QTc: 441 Interpretive Statements Sinus rhythm Borderline prolonged FL interval Minimal ST elevation, inferior leads Compared to ECG 12/22/2020 21:23:26 Sinus tachycardia no longer present Electronically Signed On 09-30-2021 11:01:53 SHOP TECHNICIAN by Henrique Warren [email or web address] <ELECTRONICALLY SIGNED> By: Henrique Warren MD, [facility] 09/30/21 1101 1732 1732 Henrique Warren MD, [facility] /EPI
--- NOTE | 2021-09-30 12:35 | NUR ---
Pt is admitted to the hospital on 09/29/21 with Pneumonia/Respiratory Failure. They are currently awaiting results of PCR so called ESTEBAN/nephlorena - Bebeto at: [phone]. 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 He is primarily wheelchair bound. Requested Nephew bring a copy of DPOA paperwork to the hospital. Nephew confirms plan is for pt to return to [facility] upon stable for discharge. CM to continue to follow for discharge needs.
--- NOTE | 2021-09-30 15:30 | NUR ---
PT IS 86 Y/O MALE HERE FOR RESPIRATORY FAILURE, PNEUMONITIS, AND HYPERCAPNEA BOARDING IN BAY 3 IN ER. ADMISSION HX/ASSESSMENT COMPLETED. PT IS POOR HISTORIAN BUT WAS ABLE TO ANSWER SOME BASIC QUESTIONS. PT IS ON ENHANCED PRECAUTIONS HIS RAPID COVID WAS NEGATIVE BUT ER IS STILL AWAITING THE PCR RESULT. PT IS ON 2L PER NC, LUNGS ARE DIM IN THE UPPER [place] W/SOME WHEEZES NOTED TO THE BOTTOM [place]. PT DENIES PAIN. RCVNG FLUIDS/ANTIBIOTICS. BED ALARM ON FOR SAFETY. PT IS A RESIDENT OF A INTERMEDIATE CARE FACILITY.
[2021-10-01 00:05] VITALS: BP 108/56
[2021-10-01] MEDS ORDERED: FUROSEMIDE 40 M40 MG PO (01:10)
[2021-10-01] MEDS ORDERED: KLOR-CON M2020 MEQ PO (01:11)
[2021-10-01] MEDS ORDERED: ACETAMINOPHEN500 M1 PO (01:14)
[2021-10-01] MEDS ORDERED: TRAMADOL 50 MG50 MG PO (01:16)
[2021-10-01] MEDS ORDERED: RISPERDAL0.5 MG PO (01:20)
[2021-10-01 04:36] VITALS: BP 95/55
[2021-10-01 04:42] LABS: HEMOGLOBIN 9.3 gm/dL (14.0-18.0); MCH 28.7 pg (26.0-34.0); MCHC 33.4 g/dL (28.0-37.0); MCV 85.9 fL (80.0-100.0); MPV 8.1 fl. (7.2-11.1); RBC 3.26 mil/uL (4.50-6.00); RDW-CV 14.3 % (10.5-14.5); WBC 8.2 thou/uL (4.0-11.0)
[2021-10-01 05:20] LABS: ALBUMIN 1.9 g/dL (3.4-5.0); CALCIUM 7.8 mg/dL (8.5-10.1); CREATININE 1.1 mg/dL (0.6-1.3); MAGNESIUM 1.9 mg/dL (1.8-2.4); TOTAL BILIRUBIN 0.2 mg/dL (<0.1-1.0); TOTAL PROTEIN 5.3 g/dL (6.4-8.2)
--- NOTE | 2021-10-01 05:56 | NUR ---
PT ADMITTED TO ROOM 112 DURING THIS SHIFT; VSS, A+OX1, CONFUSED, UNABLE TO ANSWER QUESTIONS ABOUT LBM, ETC., 2LO2 NC, UP WITH SBA-1. HE HAS DENIED THE NEED FOR PAIN MEDICATION UP TO THIS TIME.
[2021-10-01 06:00] LABS: BE 0.4 mmol/L (-2 to +3); pH 7.321 (7.340-7.450)
[2021-10-01 06:02] LABS: PCO2 53.4 mmHg (35.0-45.0)
[2021-10-01 12:00] VITALS: BP 135/57
--- NOTE | 2021-10-01 12:59 | 2DMMODE ---
[place] [address] 2 D/M-MODE ECHOCARDIOGRAM Name: ETIENNE GAN JR Room: [address] IN [facility]#: [id number] Admission: 09/29/21 Attend Phys: Estephania Chiu, Discharge: Date of : 37 Date of Service: 10/01/21 1259 Report #: [id number] THIS REPORT FOR: cc: CECILLE KOENIG NP, KATHERINE NP Liston, Michael J. MD [facility] ~ APPROVED REPORT Study performed: 10/01/2021 11:47:52 EXAM: Comprehensive 2D, Doppler, and color-flow Echocardiogram Patient Location: Bedside BSA: 1.87 HR: 83 bpm BP: 108/55 mmHg Other Information Study Quality: Adequate Indications Hypotension Covid, Edema 2D Dimensions IVSd: 11.22 (7-11mm) LVOT Diam: 18.24 (18-24mm) LVDd: 45.39 mm PWd: 11.00 (7-11mm) Ascending Ao: 29.49 (22-36mm) LVDs: 27.91 (25-40mm) Aortic Root: 30.97 mm Volumes Left Atrial Volume (Systole) LA ESV Index: 22.20 mL/m2 Aortic Valve AoV Peak Jim.: 1.01 m/s AO Peak Gr.: 4.10 mmHg LVOT Max P.22 mmHg AO Mean Gr.: 2.28 mmHg LVOT Mean P.10 mmHg LVOT Max V: 0.75 m/s AO V2 VTI: 18.29 cm LVOT Mean V: 0.48 m/s RODDY (VTI): 2.25 cm2 LVOT V1 VTI: 15.77 [place] [address] 2 D/M-MODE ECHOCARDIOGRAM Name: ETIENNE GAN JR Room: [address] IN .R.#: [id number] Admission: 09/29/21 Attend Phys: Estephania Chiu, Discharge: Date of : 37 Date of Service: 10/01/21 1259 Report #: [id number] E/A Ratio: 1.12 MV Decel. Time: 225.66 ms MV E Max Jim.: 0.80 m/s MV PHT: 65.44 ms MVA (PHT): 3.36 cm2 TDI E/Lateral E': 8.89 E/Medial E': 8.89 Medial E' Jim.: 0.09 m/s Lateral E' Jim.: 0.09 m/s Pulmonary Valve PV Peak Jim.: 0.73 m/s PV Peak Gr.: 2.15 mmHg Tricuspid Valve RAP Estimate: 5.00 mmHg TR Peak Gr.: 44.90 mmHg RVSP: 49.90 mmHg PA Pressure: 49.90 mmHg Left Ventricle The left ventricle is normal size. There is normal LV segmental wall motion. There is normal left ventricular wall thickness. Left ventricular systolic function is normal. LVEF is 60-65%. Grade I - abnormal relaxation pattern. Right Ventricle Right ventricle is mildly dilated. The right ventricular systolic function is normal. Atria The left atrium size is normal. Right atrium is mildly dilated. Aortic Valve The aortic valve is normal in structure. No aortic regurgitation is present. There is no aortic valvular stenosis. Mitral Valve There is mitral annular calcification. Trace mitral regurgitation. No evidence of mitral valve stenosis. Tricuspid Valve The tricuspid valve is normal in structure. Mild tricuspid regurgitation. The RVSP is 50-55 mmHg[place] [address] 2 D/M-MODE ECHOCARDIOGRAM Name: ETIENNE GAN JR Room: [address] IN [facility]#: [id number] Admission: 09/29/21 Attend Phys: Estephania Chiu, Discharge: Date of : 37 Date of Service: 10/01/21 1259 Report #: [id number] The pulmonary valve is normal in structure. There is no pulmonic valvular regurgitation. Great Vessels The aortic root is normal in size. IVC is normal in size and collapses >50% with inspiration. Pericardium There is no pericardial effusion. <Conclusion> The left ventricle is normal size. There is normal left ventricular wall thickness. Left ventricular systolic function is normal. LVEF is 60-65%. Grade I - abnormal relaxation pattern. Right ventricle is mildly dilated. Right atrium is mildly dilated. Trace mitral regurgitation. There is mitral annular calcification. Mild tricuspid regurgitation. The RVSP is 50-55 mmHg. IVC is normal in size and collapses >50% with inspiration. <ELECTRONICALLY SIGNED> By: Jacques Garcia MD, FACC 10/01/21 1259 1259 1259 Jacques Garcia MD, FACC /INF
[2021-10-01 16:43] VITALS: BP 116/60
--- NOTE | 2021-10-01 17:27 | NUR ---
CM FOLLOWUP PT NOT MED CLEAR AND PENDING VIDEO SWALLOW. CM TO FOLLOW FFOR DC NEEDS.
--- NOTE | 2021-10-01 18:50 | NUR ---
PT TRANSFERRED TO ROOM 205 AT 1540. SR ON CHILDREN COUNSELOR, DENIES PAIN. Q2H REPOSITIONING COMPLETED. VOICED NO CONCERNS THIS SHIFT. CALL LIGHT WITHIN REACH.
[2021-10-01 20:00] VITALS: BP 118/67
[2021-10-02 00:59] VITALS: BP 109/55
[2021-10-02 04:00] VITALS: BP 108/74
--- NOTE | 2021-10-02 04:38 | NUR ---
PT CONFUSED AND UNCOOPERATIVE AT TIMES. HAD TO TALK PT INTO TAKING HS MEDS. THESE WERE CRUSHED AND PLACED IN PUDDING. TOOK NECTAR THICK LIQ WITHOUT DIFFICULTY. O2 ON AT 2L/NC, NO SOA NOTED. INCONT OF URINE. PT ATTEMPTING TO GET OUT OF BED OCC. TELEMETRY ON SHOWING SR WITH OCC PAC.
[2021-10-02 05:46] LABS: HEMATOCRIT 31.4 % (42.0-52.0); HEMOGLOBIN 10.1 gm/dL (14.0-18.0); MCH 27.9 pg (26.0-34.0); MCHC 32.1 g/dL (28.0-37.0); MCV 86.9 fL (80.0-100.0); MPV 8.2 fl. (7.2-11.1); RBC 3.61 mil/uL (4.50-6.00); WBC 6.2 thou/uL (4.0-11.0)
[2021-10-02 06:53] LABS: ALBUMIN 1.9 g/dL (3.4-5.0); CREATININE 0.9 mg/dL (0.6-1.3); MAGNESIUM 1.7 mg/dL (1.8-2.4); POTASSIUM 4.3 mmol/L (3.5-5.1); TOTAL BILIRUBIN 0.3 mg/dL (<0.1-1.0); TOTAL PROTEIN 5.4 g/dL (6.4-8.2)
[2021-10-02 08:00] VITALS: BP 127/63
--- NOTE | 2021-10-02 11:38 | NUR ---
PATIENT PULLED OUT HIS IV WHEN TRYING TO GET OUT OF BED AT 0950. PATIENTS SECOND IV INFILTRATED, AND THIS NURSE REMOVED IT. FLIGHT DIRECTOR CONTACTED AFTER TWO FAILED ATTEMPTS TO PLACE A NEW IV FOR IV ANTIBIOTIC INFUSIONS.
[2021-10-02 12:05] VITALS: BP 106/66
--- NOTE | 2021-10-02 16:56 | NUR ---
CM FOLLOWUP PT NOT MED CLEAR YET, BUT MAY BE CLEAR FOR DC TOMORROW, 10/03/21. UPON MED CLEARANCE, PT TO RETURN TO LTC AT [facility]. UPON MED CLEARANCE, CONTACT [facility] AT [facility] ([phone]) TO ARRANGE PT TRANSFER. [facility] MAY BE ABLE TO PROVIDE TRANSPORT ON 10/03/21. DC ORDERS CAN BE FAXED TO [facility] AT [phone].
[2021-10-02 17:32] VITALS: BP 110/69
[2021-10-02 20:00] VITALS: BP 133/72
[2021-10-03] VITALS: BP 115/67
[2021-10-03 03:51] LABS: HEMATOCRIT 29.1 % (42.0-52.0); HEMOGLOBIN 9.4 gm/dL (14.0-18.0); MCH 27.9 pg (26.0-34.0); MCHC 32.2 g/dL (28.0-37.0); MCV 86.4 fL (80.0-100.0); MPV 8.1 fl. (7.2-11.1); RBC 3.36 mil/uL (4.50-6.00); RDW-CV 15.1 % (10.5-14.5); WBC 5.6 thou/uL (4.0-11.0)
[2021-10-03 04:00] VITALS: BP 114/65
[2021-10-03 04:13] LABS: POTASSIUM 4.2 mmol/L (3.5-5.1)
[2021-10-03] MEDS ORDERED: LEVOFLOXACIN500 MG PO (11:19)
[2021-10-03 12:01] VITALS: BP 117/71
--- NOTE | 2021-10-03 12:31 | NUR ---
PLAN FOR THE PT TO D/C TODAY BACK TO [facility]. TRANSPORTATION ARRANGED WITH [facility] FOR 1600. RN TO CALL REPORT. CM WILL REMAIN AVAILABLE TO ASSIST AND FOLLOW NEEDED. [facility] PHONE: [phone] FAX: [phone]
== END 2021-10-03 15:15 | DRG 177 ==
LOC: M.ERS 16:30 → M.TBA-ER 21:01 → M.ORTHSURG 09-30 23:56 → M.2W 10-01 16:03
PROVIDERS: Family Medicine; Nurse Practitioner Family; ADMIT Internal Medicine; ATTEND Internal Medicine
PROC: 05HC33Z Insertion of Infusion Device into Left Basilic Vein, Percutaneous Approach (ICD-10-PCS; principal; 2021-10-02)
DX: J69.0 Pneumonitis due to inhalation of food and vomit (principal); J96.22 Acute and chronic respiratory failure with hypercapnia; J96.21 Acute and chronic respiratory failure with hypoxia; E87.1 Hypo-osmolality and hyponatremia; J15.6 Pneumonia due to other Gram-negative bacteria; Z20.822 Contact with and (suspected) exposure to COVID-19; I10 Essential (primary) hypertension; E78.00 Pure hypercholesterolemia, unspecified; F03.90 Unspecified dementia, unspecified severity, without behavioral disturbance, psychotic disturbance, mood disturbance, and anxiety; E78.5 Hyperlipidemia, unspecified; I95.9 Hypotension, unspecified; E87.8 Other disorders of electrolyte and fluid balance, not elsewhere classified; E11.65 Type 2 diabetes mellitus with hyperglycemia; E87.5 Hyperkalemia; Z88.2 Allergy status to sulfonamides; Z79.82 Long term (current) use of aspirin; Z87.891 Personal history of nicotine dependence; Z79.899 Other long term (current) drug therapy